=== PATIENT | female | born 1990 | race Caucasian/White ===

== ENCOUNTER 2016-11-15 16:26 | Emergency (ER) | payer OTHER ==
[2016-11-15] MEDS ORDERED: PROCHLORPERAZINE 10 MG/2 ML VIAL ONE (20:11)
[2016-11-15] MEDS ORDERED: DIPHENHYDRAMINE 50 MG/ML VIAL ONE (20:11)
[2016-11-15] MEDS ORDERED: SODIUM CHLORIDE 0.9% 1,000 ML ONE (20:11)
== END 2016-11-15 21:44 | disposition home or self-care (01) ==
LOC: ER 16:26
DX: G44.52 New daily persistent headache (NDPH) (principal); J06.9 Acute upper respiratory infection, unspecified; J01.20 Acute ethmoidal sinusitis, unspecified; J01.00 Acute maxillary sinusitis, unspecified; B34.9 Viral infection, unspecified
CPT/HCPCS: 36415; 70450; 80053; 81001; 84703; 85025; 87088; 87804; 96361; 96365; 96367